=== PATIENT | female | born 1980 | race Caucasian/White ===

== ENCOUNTER 2021-05-19 20:42 | Emergency (ER) | payer OTHER, SELFPAY ==
--- NOTE | ~2021-05-19 | XR_ITS ---
EXAMINATION: XR wrist LT min 3V DATE: 05/19/2021 22:03 INDICATION: Left wrist pain, initial encounter TECHNIQUE: Posteroanterior, ulnar deviation, oblique, and lateral views of the left wrist were obtain ed. COMPARISON: None available FINDINGS: There is an acute, traumatic, closed, comminuted fracture of the distal radius. There are 3 0 degrees of dorsal angulation at the fracture site. The distal fracture fragment is dorsally displac ed by 7 mm. There is an acute, traumatic, closed, nondisplaced transverse fracture of the ulnar stylo id. Bone alignment is otherwise normal. There is soft tissue swelling of the wrist. IMPRESSION: 1. Comminuted fracture of the distal radius. 2. Nondisplaced ulnar styloid fracture. Reviewed, dictated and finalized at location A.
[2021-05-19 20:42] VITALS: BP 135/83; PULSE 109; RESP 20; TEMP 36.9; O2SAT 99
[2021-05-19] MEDS: MORPHINE SULFATE (*CRX) 4 MG/ML INJ IM (21:13)
[2021-05-19] MEDS: ONDANSETRON HCL ODT 4 MG TABLET PO (21:14)
--- NOTE | 2021-05-19 21:24 | ED.UPPEXIN ---
HPI - Extremity Injury (Upper) General Chief Complaint: Extremity Injury, Upper Stated Complaint: arm injury Time Seen by Provider: 05/19/21 20:45 Source: patient and RN notes reviewed Mode of arrival: wheelchair Limitations: no limitations History of Present Illness MD complaint: injury to: left and wrist Onset (ago): hour(s) (1) Other Extremity Injury: Left: wrist Other injuries: none Handedness: left Place: home Severity: moderate Severity scale (1-10): 8 Relieving factors: immobilization Exacerbating factors: movement of extremity Context: fall Associated symptoms: denies other symptoms Treatments prior to arrival: cold therapy Related Data Home Medications Medication Instructions Recorded Confirmed armodafinil 150 mg tablet 150 mg PO QAM 04/22/21 05/19/21 atenolol 25 mg tablet 25 mg PO DAILY 04/22/21 05/19/21 bupropion HCl 150 mg 24 hr tablet, 150 mg PO QAM 04/22/21 05/19/21 extended release diclofenac sodium 50 mg 50 mg PO BID 04/22/21 05/19/21 tablet,delayed release fluticasone propionate 50 1 spray INTRANASAL DAILY 04/22/21 05/19/21 mcg/actuation nasal spray,suspension ipratropium 18 mcg-albuterol 103 1 spray INHALATION DAILY 04/22/21 05/19/21 mcg/actuation aerosol inhaler loratadine 10 mg capsule 10 mg PO DAILY 04/22/21 05/19/21 topiramate 100 mg tablet 100 mg PO DAILY 04/22/21 05/19/21 Allergies Allergy/AdvReac Type Severity Reaction Status Date / Time No Known Allergies Allergy Verified 05/06/21 07:59 Review of Systems Review of Systems: All systems reviewed & are unremarkable except as noted in HPI and below Constitutional: Constitutional: Reports as per HPI and Reports no additional constitutional complaints Eyes: Eyes: Reports as per HPI and Reports no additional eye complaints ENT: Reports system reviewed and no additional complaints, except as documented and Reports as per HPI Cardiovascular: Cardiovascular: Reports as per HPI and Reports no additional cardiovascular complaints Respiratory: Respiratory: Reports as per HPI and Reports no additional respiratory complaints Gastrointestinal: Gastrointestinal: Reports as per HPI and Reports no additional gastrointestinal complaints Genitourinary: Genitourinary: Reports no additional female genitourinary complaints and Reports as per HPI Musculoskeletal: Musculoskeletal: Reports no additional musculoskeletal complaints, Reports as per HPI and Reports arthralgias Integumentary/Breasts: Skin/Breast: Reports system reviewed and no additional complaints, except as docu and Reports as per HPI Neurologic: Reports system reviewed and no additional complaints, except as documented and Reports as per HPI Psychiatric: Psychiatric: Reports no additional psychiatric complaints and Reports as per HPI Endocrine: Endocrine: Reports no additional endocrine complaints and Reports as per HPI Hematologic/Lymphatic: Hematologic/Lymphatic: Reports no additional hematologic/lymphatic complaints and Reports as per HPI Allergic/Immunologic: Allergic/Immunologic: Reports no additional allergic/immunologic complaints and Reports as per HPI [facility] Past Medical History Medical History (Updated 05/19/21 @ 22:35 by Alana Yap MD) Narcolepsy Family History Family History Father Alcoholism Mother Cancer Grandparent Diabetes mellitus Social History Social History Smoking status: Never smoker Alcohol intake: never Substance use: never Substance use type: does not use Exam Const: General: no acute distress and alert Nutritional Appearance: well nourished Orientation/consciousness: patient oriented x3 Limitations: no limitations HENMT: Head: normal to inspection Ears: external ears normal and TM's normal bilaterally General nose exam: Normal external nose present and Normal nares present Mouth: Yes lip normal and
--- NOTE | 2021-05-19 22:21 | PC.NURSE ---
PT REMAINS PAIN FREE, OCL AND SLING APPLIED ORDERED. CAP REFILL WNL TO ALL FINGERS AND THUMB. EXPLAINED REMOVAL AND REAPPLICATION NEEDED TO PT AND SPOUSE. VOICED UNDERSTANDING
[2021-05-19 22:36] VITALS: BP 98/72; PULSE 87; RESP 20; TEMP 37.1; O2SAT 98
--- NOTE | 2021-05-19 22:59 | PC.NURSE ---
PT ASSISTED TO CAR PER WHEELCHAIR PER THIS RN. VERY APPRECIATIVE OF CARE RECIEVED.
== END 2021-05-19 23:00 | disposition home or self-care (01) ==
PROVIDERS: Emergency Provider Emergency Medicine; PCP Family Medicine
DX: S52.502A Unspecified fracture of the lower end of left radius, initial encounter for closed fracture (principal); S52.602A Unspecified fracture of lower end of left ulna, initial encounter for closed fracture; W19.XXXA Unspecified fall, initial encounter
CPT/HCPCS: 29125; 73110; 96372; 99283; 99284; A4565; A9270; J2270

== ENCOUNTER 2021-06-11 10:20 | Outpatient (CLI) | payer OTHER, SELFPAY ==
--- NOTE | ~2021-06-11 | CT_ITS ---
EXAMINATION: CT sinus wo con DATE: 06/11/2021 11:09 INDICATION: Chronic sinusitis TECHNIQUE: Computed tomography (CT) of the paranasal sinuses was performed without intravenous contra st. The dose-length product was 301.30 mGy-cm. Automated exposure control and iterative reconstructio n technique were employed. COMPARISON: No prior studies for comparison. FINDINGS: There is mild mucosal thickening of the left sphenoid sinus. Rightward nasal septal deviati on. Ostiomeatal units are patent. Mastoids are pneumatized. IMPRESSION: 1. Minimal left sphenoid sinus disease. Reviewed, dictated and finalized at location A.
== END 2021-06-11 10:21 | disposition home or self-care (01) ==
LOC: ANHIMG 10:24
PROVIDERS: PCP Family Medicine; Visit Provider Otolaryngology
DX: J32.9 Chronic sinusitis, unspecified (principal); R09.82 Postnasal drip; R51.9 Headache, unspecified; R44.8 Other symptoms and signs involving general sensations and perceptions; J34.89 Other specified disorders of nose and nasal sinuses; R09.81 Nasal congestion
CPT/HCPCS: 70486

== ENCOUNTER 2021-07-31 01:48 | Day surgery (SDC) | payer OTHER, SELFPAY ==
[2021-07-24 08:27] VITALS: BMI 32.8
--- NOTE | 2021-07-29 16:30 | PM.IMHP ---
H&P: HPI History of Present Illness Date/Time: 07/29/21 16:30 Chief Complaint: nasal congestion, nasal obstruction, inferior turbinate hypertrophy, chronic tonsillitis, recurrent tonsillitis Narrative: the patient presents for planned surgical procedures. No change in symptoms no change in history. Review of Systems Constitutional: Constitutional: Denies fatigue, Denies fever(s) and Denies lethargy Eyes: Eyes: Denies blurry vision and Denies change in vision ENT: Reports as per HPI Cardiovascular: Cardiovascular: Denies chest pain Respiratory: Respiratory: Denies cough Endocrine: Endocrine: Denies fatigue Hematologic/Lymphatic: Hematologic/Lymphatic: Denies easy bleeding, Denies easy bruising and Denies lymphadenopathy Allergic/Immunologic: Allergic/Immunologic: Denies seasonal rhinorrhea [facility] Past Medical History Medical History Narcolepsy Family History Family History Father Alcoholism Mother Cancer Grandparent Diabetes mellitus Social History Social History Smoking status: Never smoker Alcohol intake: never Substance use: never Substance use type: does not use Living arrangements: alone Spiritual care concerns: No Meds Home Medications and Allergies Home Medications Medication Instructions Recorded Confirmed Type armodafinil 150 mg tablet 150 mg PO DAILY 04/22/21 07/24/21 History atenolol 25 mg tablet 25 mg PO DAILY 04/22/21 07/24/21 History bupropion HCl 150 mg 24 hr tablet, 150 mg PO DAILY 04/22/21 07/24/21 History extended release diclofenac sodium 50 mg 50 mg PO BID 04/22/21 07/24/21 History tablet,delayed release fluticasone propionate 50 1 spray INTRANASAL DAILY 04/22/21 07/24/21 History mcg/actuation nasal spray,suspension ipratropium 18 mcg-albuterol 103 1 spray INHALATION DAILY PRN 04/22/21 07/24/21 History mcg/actuation aerosol inhaler loratadine 10 mg capsule 10 mg PO DAILY PRN 04/22/21 07/24/21 History topiramate 100 mg tablet 100 mg PO HS 04/22/21 07/24/21 History acetaminophen [Tylenol] 650 mg PO Q8H PRN #20 cap 05/19/21 07/24/21 Rx alprazolam 0.5 mg PO DAILY PRN 07/24/21 07/24/21 History multivitamin 1 tablet PO DAILY 07/24/21 07/24/21 History Allergies Allergy/AdvReac Type Severity Reaction Status Date / Time No Known Allergies Allergy Verified 07/24/21 08:21 Exam Const: General: cooperative, healthy appearing, comfortable, well developed and alert HENMT: Head: normal to inspection, normocephalic and atraumatic Ears: hearing grossly normal bilaterally, external ears normal, TM's normal bilaterally and EAC's normal General nose exam: Normal external nose present, Normal nares present, No nasal polyps present, mucous membranes and turbinates abnormal ( Turbinate hypertrophy) and Normal septum present Face and sinus: normal facial exam Mouth: Yes Normal oral and palatal mucosa present, Yes lip normal, Yes tongue normal, Yes oropharynx normal and Yes moist mucous membranes Teeth and gingiva: dentition normal and gingiva normal Throat: posterior oropharynx normal, tonisls abnormal ( cryptic edematous erythematous 2+) and uvula midline Eyes: General: appearance normal, both eyes and all related structures Periorbital: periorbital findings normal Eyelids: eyelids normal Conjunctivae: conjunctivae normal Sclera: sclerae normal Neck: Neck: normal visual inspection, full ROM and no lymphadenopathy Thyroid: thyroid normal Lymphatic: no lymphadenopathy noted Resp: Effort & Inspection: normal respiratory effort and able to speak in complete sentences Cardio: Jugular venous distension: no JVD Neuro: Cranial nerves: Yes CN's II-XII intact bilaterally Assessment and Plan Assessment and plan (1) Hypertrophy of both inferior nasal turbinates: Code(s): J34.3 -
[2021-07-31] VITALS (8 sets, daily range): BP systolic 123–148; BP diastolic 78–98; PULSE 71–95; RESP 12–16; TEMP 36.4–36.6; O2SAT 99–100
--- NOTE | 2021-07-31 07:05 | WPDHPUPDATE1 ---
History and Physical Update Update Date/Time: 07/31/21 07:05 History and Physical has been reviewed, including an updated exam of the patient. There are NO changes in the patient's condition. Risks, benefits, and alternatives have been discussed and questions answered. Patient agrees to proceed with procedure.
--- NOTE | 2021-07-31 07:21 | ECG_ITS ---
Measurements Intervals [place] Rate: 77 P: 31 NM: 151 QRS: -8 QRSD: 80 T: 14 QT: 380 QTc: 431 Interpretive Statements SINUS RHYTHM INCOMPLETE RIGHT BUNDLE BRANCH BLOCK LOW QRS VOLTAGE IN PRECORDIAL LEADS BASELINE ARTIFACT- I, II, AVR BORDERLINE ECG Electronically Signed On 07-31-2021 7:34:12 CDT by Isra Feliciano D.O.
[2021-07-31] MEDS: ACETAMINOPHEN 500 MG TABLET 1000 MG PO (07:41)
[2021-07-31] MEDS: LACTATED RINGERS 1,000 ML 30 ML IV CONT (07:45)
--- NOTE | 2021-07-31 08:13 | P.PNAN_ITS ---
Anes - Initial Pre Proc Eval Procedure: Operation Date: 07/31/21 08:30 Proposed Procedures p Bilateral Inferior Turbinectomy, - Hector Chanel MD s Tonsillectomy - Hector Chanel MD Date/Time: 07/31/21 08:13 Surgeon: Hector Chanel MD Pre Op Diagnosis: turbinate hypertrophy, chronic tonsilits Patient Data Age: 41 Gender: F Height: 1.65 m Weight: 91.5 kg Last Vital Signs Temp 36.6 C 07/31/21 08:08 Pulse 72 07/31/21 08:08 Resp 16 07/31/21 08:08 BP 123/81 07/31/21 08:08 Pulse Ox 100 07/31/21 08:08 Allergies Allergy/AdvReac Type Severity Reaction Status Date / Time No Known Allergies Allergy Verified 07/31/21 07:31 Home Medications Medication Instructions Recorded Confirmed Type armodafinil 150 mg tablet 150 mg PO DAILY 04/22/21 07/31/21 History atenolol 25 mg tablet 25 mg PO DAILY 04/22/21 07/31/21 History bupropion HCl 150 mg 24 hr tablet, 150 mg PO DAILY 04/22/21 07/31/21 History extended release diclofenac sodium 50 mg 50 mg PO BID 04/22/21 07/31/21 History tablet,delayed release fluticasone propionate 50 1 spray INTRANASAL DAILY 04/22/21 07/31/21 History mcg/actuation nasal spray,suspension ipratropium 18 mcg-albuterol 103 1 spray INHALATION DAILY PRN 04/22/21 07/31/21 History mcg/actuation aerosol inhaler loratadine 10 mg capsule 10 mg PO DAILY PRN 04/22/21 07/31/21 History topiramate 100 mg tablet 100 mg PO HS 04/22/21 07/31/21 History acetaminophen [Tylenol] 650 mg PO Q8H PRN #20 cap 05/19/21 07/31/21 Rx alprazolam 0.5 mg PO DAILY PRN 07/24/21 07/31/21 History multivitamin 1 tablet PO DAILY 07/24/21 07/31/21 History Patient hx anesthesia problems: none Family hx anesthesia problems: none Results Review: All pre-operative results and documents have been reviewed as part of the pre-operative evaluation. FORMERLY [facility] Past Medical History Medical History Anxiety Asthma Hypertension Migraine Narcolepsy PTSD (post-traumatic stress disorder) Family History Family History Father Alcoholism Mother Cancer Grandparent Diabetes mellitus Social History Social History Smoking status: Never smoker Alcohol intake: never Substance use: never Substance use type: does not use Living arrangements: alone Spiritual care concerns: No Anes - Eval Final PreProcedure Day of Procedure 07/31/21 08:13 Patient weight: obese Heart: regular rate and rhythm Lungs: clear to auscultation Airway: Mallampati scale class II Neurological: alert and oriented Last oral intake: >/= 8 hours ASA classification: III Emergent: no Anesthetic plan: proceed Anesthesia type and monitoring: general ETT and standard monitoring Results Review: All pre-operative results and documents have been reviewed as part of the pre-operative evaluation. Informed Consent: The patient's anesthetic plan and its attendant risks and benefits were discussed with the patient/family/POA. Questions were solicited an d answers provided to the satisfaction of the patient/family/POA.
[2021-07-31] MEDS: SCOPOLAMINE 1.5 MG PATCH TRANSDERM (08:37)
[2021-07-31] MEDS: ceFAZolin 2 GM/D5W 50 ML 2 GM/50 ML BAG IVPB (09:27)
[2021-07-31] MEDS: OXYMETAZOLINE HCL 0.05% NAS 15 ML BTL (*BKC) 1 SPRAY NASAL (09:54)
[2021-07-31] MEDS: LIDO 1%/EPINEPHRINE 1:100,000 50 ML VIAL INFILTRATE (10:19)
--- NOTE | 2021-07-31 10:38 | W.PM.PROC2 ---
Procedure Note - Detailed Date of Procedure 07/31/21 Pre-op Diagnosis turbinate hypertrophy, chronic tonsilits, nasal congestion, nasal obstruction Post-op Diagnosis same Procedure Performed 1. Tonsillectomy, 2. Endoscopic assisted submucosal turbinate reduction with outfracture Surgeon Hector Chanel MD Anesthesia general Indications See above Findings 1+ tonsils severely cryptic adequate hemostasis, significant turbinate hypertrophy well reduced following the procedure adequate hemostasis Description of Procedure The patient is correctly identified sent was verified in the preoperative holding area. The patient was brought to the operating room and a time-out performed. General anesthesia was induced and endotracheal tube was secured the patient's airway taped to the midline. Patient then prepped and draped for the aforementioned procedures. Second time-out performed. McIvor mouth gag inserted revealing tonsils with the aforementioned findings noted. Please add tonsil stones to the findings. Dissected in extracapsular plane with Bovie electrocautery at a setting of 10 hemostasis was excellent also use the intermittent application of suction Bovie electrocautery at a setting of 12. McIvor mouth gag lowered bilateral nasal passages viewed 1 cc of 1% lidocaine with 1 100,000 parts epinephrine injected into the bilateral anterior portions of the inferior turbinates. They were debrided in the submucosal plane using a microdebrider with inferior turbinate 2 mm tip this was done bilaterally. There were then outfractured using [employer] [place] elevator. The mulberry tips, please add to the findings, were then cauterized using suction Bovie electrocautery setting of 12. Afrin-soaked pledgets were placed bilaterally and allowed to sit for 5 minutes. Hemostasis was excellent. The Afrin-soaked pledgets were removed bilateral nasal passages suction of the choana. The McIvor mouth gag was then inserted revealing postoperative tonsillar fauces which were not bleeding. The McIvor mouth gag was removed. This marked end the procedure. Total blood loss 10 cc. I performed all dictated portions. There were no immediate complications. Estimated Blood Loss 10 Drains No Packing No Pathology yes Complications No immediate complications Condition stable Disposition PACU
[2021-07-31] MEDS: fentaNYL CITRATE INJ (*CRX) 100 MCG/2 ML VIAL 25 MCG IV PUSH ×2 (10:56→10:58)
--- NOTE | 2021-07-31 13:39 | SUR.PHASEII ---
PT WAS READY AND WAITING FOR RIDE AT 1210. DISCHARGED AT 1240.
== END 2021-07-31 12:40 | disposition home or self-care (01) ==
PROVIDERS: PCP Family Medicine; Visit Provider Otolaryngology
PROC: (CPT 42826; principal; 2021-07-31 08:30)
PROC: (CPT 42826; 2021-07-31 08:30)
DX: J34.3 Hypertrophy of nasal turbinates (principal); J35.01 Chronic tonsillitis; R09.81 Nasal congestion; J34.89 Other specified disorders of nose and nasal sinuses; I10 Essential (primary) hypertension; J45.909 Unspecified asthma, uncomplicated; F41.9 Anxiety disorder, unspecified; F43.10 Post-traumatic stress disorder, unspecified; E66.9 Obesity, unspecified; Z68.33 Body mass index [BMI] 33.0-33.9, adult
CPT/HCPCS: 42826; 30140; 88302; 93005; A9270; J0330; J0690; J1100; J2250; J2405; J2704; J3010; J7120

== ENCOUNTER 2022-04-01 13:00 | Outpatient (CLI) | payer OTHER, SELFPAY ==
--- NOTE | ~2022-04-01 | XR_ITS ---
XR ankle LT min 3V, XR foot LT min 3V 04/01/2022 13:52 INDICATION: Left ankle pain PROCEDURE: 4 views left ankle and 4 views left foot COMPARISON: No prior studies for comparison. FINDINGS: There is an avulsion fracture just lateral to the calcaneal cuboid joint, with associated s oft tissue swelling. There is a screw in the first metatarsal neck. The soft tissues appear within no rmal limits. No foreign bodies are identified. IMPRESSION: 1: Avulsion fracture lateral to the calcaneal cuboid joint. Correlate for point tenderness. Reviewed, dictated and finalized at location B. IMPRESSION: 1: Avulsion fracture lateral to the calcaneal cuboid joint. Correlate for point tenderness.
== END 2022-04-01 13:01 | disposition home or self-care (01) ==
LOC: CHSIMG 13:18
PROVIDERS: PCP Family Medicine; Visit Provider Nurse Practitioner Family
DX: S93.602A Unspecified sprain of left foot, initial encounter (principal)
CPT/HCPCS: 73610; 73630

== ENCOUNTER 2022-04-02 15:00 | Outpatient (CLI) | payer OTHER, SELFPAY ==
--- NOTE | 2022-04-02 16:09 | PC.NURSE ---
PT ARRIVES OUTPATIENT FOR SPLINT APPLICATION FOR DX AVULSION FRACTURE LATERAL TO CALCANEAL CUBOID, LEFT FOOT. 20 INCHES OF 6 INCH OCL APPLIED TO LEFT FOOT TO MID CALF. PT HAS OWN CRUTCHES. CAP REFILL AND SENSATION AFTER APPLICATION WNL. NO CONCERNS OR QUESTIONS. INSTRUCTIONS ON REAPPLICATION IF SWELLING OCCURS GIVEN. PT VOICED UNDERSTANDING
== END 2022-04-02 15:01 | disposition home or self-care (01) ==
LOC: CHSIMG 15:12
PROVIDERS: PCP Family Medicine; Visit Provider Physician Assistant
DX: S92.902A Unspecified fracture of left foot, initial encounter for closed fracture (principal)
CPT/HCPCS: 29515

== ENCOUNTER 2022-09-22 16:30 | Outpatient (CLI) | payer OTHER, SELFPAY ==
--- NOTE | ~2022-09-22 | XR_ITS ---
XR sacroiliac joints min 3V DATE: 09/22/2022 18:21 INDICATION: Chronic joint pain TECHNIQUE: AP and bilateral oblique views of the sacroiliac joints COMPARISON: None FINDINGS: Normal alignment at the sacral iliac joints. No significant joint space narrowing or any er osion or ankylosis is noted. Severe degenerative disc disease at L5-S1. Status post bilateral tubal ligation IMPRESSION: Normal sacroiliac joints Severe degenerative disease at L5-S1 Status post bilateral tubal ligation Reviewed, dictated and finalized at Location A. Reviewed, dictated and finalized at location B. 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
--- NOTE | ~2022-09-22 | XR_ITS ---
XR lumbar spine 2-3V DATE: 09/22/2022 18:20 INDICATION: Chronic back pain TECHNIQUE: AP, lateral, coned lateral lumbosacral views COMPARISON: None FINDINGS: Normal alignment of the lumbar spine. No fracture or bone destruction. Included lower thora cic and lumbar pedicles are intact. There is severe degenerative disc disease at L5-S1. The lumbar interspaces otherwise are well preserv ed. The sacroiliac joints are normal. Status post cholecystectomy. IMPRESSION: Severe degenerative disc disease at L5-S1 Reviewed, dictated and finalized at location B. 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
--- NOTE | ~2022-09-22 | XR_ITS ---
XR foot LT standing 2V DATE: 09/22/2022 18:20 INDICATION: Chronic left foot pain TECHNIQUE: Standing AP and lateral views COMPARISON: None FINDINGS: Status post bunionectomy. No recent fracture or dislocation. No periosteal reaction or bone destruction. Joint spaces are prese rved. No erosive changes. IMPRESSION: Status post bunionectomy Reviewed, dictated and finalized at location B. [employer] IMPRESSION: Status post bunionectomy
--- NOTE | ~2022-09-22 | XR_ITS ---
XR foot RT standing 2V DATE: 09/22/2022 18:18 INDICATION: Chronic joint pain TECHNIQUE: Standing AP and lateral views COMPARISON: None FINDINGS: Status post bunionectomy. Old healed distal fifth metatarsal shaft fracture. Slight plantar calcaneal enthesopathy No recent fracture or dislocation, periosteal reaction or bone destruction. Joint spaces are preserve d. No erosive change. IMPRESSION: Status post bunionectomy Slight plantar calcaneal enthesopathy Old healed distal fifth metatarsal shaft fracture deformity Reviewed, dictated and finalized at location B. 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
--- NOTE | ~2022-09-22 | XR_ITS ---
XR hand BI arthritis min 3V DATE: 09/22/2022 18:20 INDICATION: Chronic joint pain TECHNIQUE: 4 views of each hand COMPARISON: 05/19/2021 left breast FINDINGS: Healed mild fracture deformity of the distal left radius. No recent fracture or dislocation, periosteal reaction or bone destruction, erosive change or chondro calcinosis of either hand is detected. Joint spaces are relatively well preserved. IMPRESSION: Old healed fracture deformity of the distal radius; otherwise negative examination Reviewed, dictated and finalized at location B. DIRECTOR IMPRESSION: Old healed fracture deformity of the distal radius; otherwise negat cleo examination
[2022-09-22 17:02] LABS: Basophils Absolute Auto 0.06 K/mm3 (0.00-0.10); Basophils Percent Auto 0.8 % (0.0-1.0); Eosinophils Percent Auto 2.7 % (1.0-6.0); Hematocrit 40.5 % (35.0-49.0); Hemoglobin 13.1 g/dL (12.0-15.0); Immature Granulocyte Absolute 0.03 K/mm3 (0.00-0.00); Immature Granulocyte Percent A 0.4 % (0.0-0.0); Lymphocytes Absolute Auto 2.08 K/mm3 (1.10-4.50); Mean Corpuscular HGB Conc 32.3 g/dL (32.0-36.0); Mean Corpuscular Hemoglobin 31.4 pg (27.0-31.0); Mean Corpuscular Volume 97.1 fL (78.0-102.0); Mean Platelet Volume 11.5 fl (9.2-11.8); Monocytes Percent Auto 6.7 % (2.0-11.0); Neutrophils Absolute Auto 4.6 K/mm3 (1.7-7.2); Neutrophils Percent Auto 61.4 % (50.0-70.0); Platelet Count Result 306 K/mm3 (150-420); Red Blood Count 4.17 M/mm3 (4.20-5.40); Red Cell Distribution Width 12.1 % (11.6-14.4); White Blood Count 7.4 K/mm3 (4.8-10.8)
[2022-09-22 17:53] LABS: Alanine Aminotransferase 30 U/L (14-59); Albumin Level 3.9 g/dL (3.4-5.0); Alkaline Phosphatase 75 U/L (46-116); Anion Gap 13 mmol/L (8-16); Aspartate Amino Transferase 18 U/L (15-37); Bilirubin,Total 0.3 mg/dL (0.00-1.00); Blood Urea Nitrogen 15 mg/dL (7-18); CRP 0.5 mg/dL (0.0-0.9); Calcium 8.7 mg/dL (8.5-10.1); Carbon Dioxide 25 mmol/L (21-32); Chloride 106 mmol/L (98-108); Creatine Kinase 60 U/L (26-192); Estimated Glomerular Filt Rate > 60; Glucose 90 mg/dL (70-99); Osmolality Calculated 298 mOsm/kg (285-295); Potassium 3.4 mmol/L (3.5-5.1); Sodium 144 mmol/L (136-145); Total Protein 7.2 g/dL (6.4-8.2)
[2022-09-22 18:08] LABS: Erythrocyte Sedimentation Rate 24 mm/hr (0-15)
[2022-09-24 12:35] LABS: SM Antibody <1.0; SM/RNP Antibody <1.0; SS-A <1.0; SS-B <1.0
[2022-09-25 04:07] LABS: Aldolase 2.2 U/L (<=8.1)
[2022-09-26 10:00] LABS: ANCA Screen Negative (Negative); Myeloperoxidase Ab <1.0 AI (<1.0); Proteinase-3 Ab <1.0 AI (<1.0); S cerevisiae Ab (IgA) 10.1 U (<=20.0); S cerevisiae Ab (IgG) 18.6 U (<=20.0)
[2022-09-26 14:03] LABS: Anti Nuclear Antibody Titer 1:40 (Negative)
[2022-09-27 06:42] LABS: Complement C3 178 mg/dL (83-193)
== END 2022-09-22 16:31 | disposition home or self-care (01) ==
LOC: CHSLAB 16:34
PROVIDERS: PCP Family Medicine; Visit Provider Internal Medicine
DX: M19.90 Unspecified osteoarthritis, unspecified site (principal)
CPT/HCPCS: 36415; 72100; 72202; 73130; 73620; 80053; 82085; 82550; 84550; 85025; 85613; 85652; 85730; 85732; 86036; 86038; 86039; 86140; 86160; 86225; 86235; 86671

== ENCOUNTER 2022-12-21 12:33 | Outpatient (CLI) | payer OTHER, SELFPAY ==
[2022-12-24 14:01] LABS: Thyroid Peroxidase Antibodies 4 IU/mL (<9)
== END 2022-12-21 12:34 | disposition home or self-care (01) ==
LOC: CHSLAB 12:35
PROVIDERS: PCP Family Medicine; Visit Provider Internal Medicine
DX: M19.90 Unspecified osteoarthritis, unspecified site (principal)
CPT/HCPCS: 36415; 82784; 83516; 86376

== ENCOUNTER 2023-01-27 17:47 | Outpatient (CLI) | payer OTHER, SELFPAY ==
--- NOTE | ~2023-01-27 | XR_ITS ---
EXAMINATION:XR_CERV2-3V_CR DATE: 01/27/2023 18:42 INDICATION: Neuropathy of the left arm TECHNIQUE: AP, lateral, lateral swimmers and odontoid views of the cervical spine are provided. COMPARISON: None FINDINGS: There are 2 mm of anterolisthesis of C5 on C6. The odontoid process is intact. No fracture is identified. The vertebral body heights are maintained. There is mild loss of intervertebral disc s pace height at C5-6 and C6-7. There is multilevel mild facet and uncovertebral joint osteoarthritis. Prevertebral soft tissues are normal. IMPRESSION: 1. Mild cervical spondylosis without acute findings. Reviewed, dictated and finalized at location B.
== END 2023-01-27 17:48 | disposition home or self-care (01) ==
LOC: CHSIMG 17:48
PROVIDERS: PCP Family Medicine; Visit Provider Nurse Practitioner Family
DX: M79.602 Pain in left arm (principal); M43.02 Spondylolysis, cervical region
CPT/HCPCS: 72040